=== PATIENT | female | born 1970 | race Caucasian/White ===

== ENCOUNTER 2017-07-15 08:56 | Inpatient (IN) | payer OTHER ==
[~2017-07-15] VITALS: Ht 162.6 cm; Wt 78.1 kg
[2017-07-15 09:13] VITALS: Ht 162.6 cm; Wt 78.1 kg
[2017-07-15 11:07] LABS: BASOPHIL % 0.4 % (0-2); PLATELET COUNT 261 x10^3mcL (130-400); RED CELL DISTRIBUTION WIDTH 12.8 % (11.5-14.5)
[2017-07-15 11:27] LABS: CALCIUM 9.2 mg/dL (8.5-10.1); CHLORIDE SERUM 109 mmol/L (98-107); CREATININE SERUM 0.9 mg/dL (0.6-1.0); GFR1 > 60 mL/min; GLUCOSE SERUM 93 mg/dL (74-106); POTASSIUM SERUM 4.2 mmol/L (3.5-5.1); SODIUM SERUM 144 mmol/L (136-145)
[2017-07-15 11:31] LABS: ALBUMIN 3.8 g/dL (3.4-5.0); ALKALINE PHOSPHATASE 78 U/L (46-116); ALT/SGPT 14 U/L (14-59); AMYLASE 54 U/L (25-115); AST/SGOT 11 U/L (15-37); BILIRUBIN TOTAL 0.3 mg/dL (0.20-1.00); LIPASE 56 IU/L (73-393)
[2017-07-15] MEDS ORDERED: LORAZEPAM0.5 MG PO (11:57)
[2017-07-15] MEDS ORDERED: IBUPROFEN400 MG PO (11:58)
[2017-07-15] MEDS ORDERED: OMEPRAZOLE40 M1 PO (11:58)
[2017-07-15 12:44] LABS: microscopic required? NO
[2017-07-15 13:11] LABS: UA SPECIFIC GRAVITY <=1.005 (1.005-1.035); urine erythrocyte NEGATIVE (NEGATIVE)
[2017-07-15 14:09] VITALS: BP 128/88
[2017-07-15 16:53] VITALS: BP 115/74
[2017-07-15 21:27] VITALS: BP 112/67
[2017-07-16 05:42] VITALS: BP 119/65
[2017-07-16 06:20] LABS: BASOPHIL % 0.4 % (0-2); PLATELET COUNT 210 x10^3mcL (130-400); RED CELL DISTRIBUTION WIDTH 13.3 % (11.5-14.5)
[2017-07-16 06:26] LABS: CALCIUM 8.7 mg/dL (8.5-10.1); CARBON DIOXIDE 27.2 mmol/L (21-32); CHLORIDE SERUM 108 mmol/L (98-107); CREATININE SERUM 0.9 mg/dL (0.6-1.0); GFR1 > 60 mL/min; GLUCOSE SERUM 93 mg/dL (74-106); MAGNESIUM 1.9 mg/dL (1.8-2.4); POTASSIUM SERUM 3.9 mmol/L (3.5-5.1); SODIUM SERUM 142 mmol/L (136-145)
[2017-07-16 10:16] VITALS: BP 118/69
[2017-07-16] MEDS ORDERED: FLA500 PO (10:17)
[2017-07-16] MEDS ORDERED: CIPRO500 MG PO (10:17)
[2017-07-16 13:12] VITALS: BP 114/72
[2017-07-16 14:03] VITALS: BP 114/72
== END 2017-07-16 15:40 | disposition home or self-care (01) | DRG 244 ==
LOC: ED 08:56 → DU 12:15
PROVIDERS: Emergency Medicine; Internal Medicine Pulmonary Disease
DX: K57.32 Diverticulitis of large intestine without perforation or abscess without bleeding (principal); E86.9 Volume depletion, unspecified; F41.9 Anxiety disorder, unspecified; K21.9 Gastro-esophageal reflux disease without esophagitis; F17.200 Nicotine dependence, unspecified, uncomplicated; Z90.710 Acquired absence of both cervix and uterus; Z88.5 Allergy status to narcotic agent; Z88.0 Allergy status to penicillin; Z88.1 Allergy status to other antibiotic agents; Z80.0 Family history of malignant neoplasm of digestive organs
CPT/HCPCS: 87046; 87046-59; J0744; J1956; J3490; J7042; Q0163

== ENCOUNTER 2018-04-15 15:13 | Emergency (ER) | payer OTHER ==
[~2018-04-15] VITALS: Ht 162.6 cm; Wt 76.7 kg
[~2018-04-15 15:13] MED LIST: CIPRO500 MG PO; FLA500 PO; IBUPROFEN400 MG PO; LORAZEPAM0.5 MG PO; OMEPRAZOLE40 M1 PO
[2018-04-15 15:24] VITALS: BP 128/84; Ht 162.6 cm; Wt 76.7 kg
== END 2018-04-15 17:14 | disposition home or self-care (01) ==
LOC: ED 15:13
DX: G62.9 Polyneuropathy, unspecified (principal); R10.9 Unspecified abdominal pain; M54.5 Low back pain; F17.210 Nicotine dependence, cigarettes, uncomplicated; F41.9 Anxiety disorder, unspecified; K21.9 Gastro-esophageal reflux disease without esophagitis; Z71.6 Tobacco abuse counseling; Z88.0 Allergy status to penicillin; Z88.1 Allergy status to other antibiotic agents; Z88.5 Allergy status to narcotic agent; Z90.710 Acquired absence of both cervix and uterus
CPT/HCPCS: 99406

== ENCOUNTER 2018-09-08 08:01 | Emergency (ER) | payer OTHER ==
[~2018-09-08] VITALS: Ht 162.6 cm; Wt 78.0 kg
[2018-09-08 08:06] VITALS: Ht 162.6 cm; Wt 78.0 kg
[2018-09-08 08:45] VITALS: BP 123/80
== END 2018-09-08 08:45 | disposition home or self-care (01) ==
LOC: ED 08:01
DX: K57.92 Diverticulitis of intestine, part unspecified, without perforation or abscess without bleeding (principal); F17.210 Nicotine dependence, cigarettes, uncomplicated; F41.9 Anxiety disorder, unspecified; K21.9 Gastro-esophageal reflux disease without esophagitis; Z90.710 Acquired absence of both cervix and uterus; Z88.0 Allergy status to penicillin; Z88.5 Allergy status to narcotic agent; Z88.1 Allergy status to other antibiotic agents; Z71.6 Tobacco abuse counseling
CPT/HCPCS: 99406

== ENCOUNTER 2019-03-03 15:06 | Emergency (ER) | payer OTHER ==
[~2019-03-03] VITALS: Ht 162.6 cm; Wt 77.1 kg
[2019-03-03 15:09] VITALS: Ht 162.6 cm; Wt 77.1 kg
[2019-03-03 16:36] LABS: BASOPHIL % 0.4 % (0-2); PLATELET COUNT 300 x10^3mcL (130-400)
[2019-03-03 16:49] LABS: CALCIUM 9.1 mg/dL (8.5-10.1); CHLORIDE SERUM 104 mmol/L (98-107); CREATININE SERUM 0.9 mg/dL (0.6-1.0); GFR1 > 60 mL/min; GLUCOSE SERUM 102 mg/dL (74-106); POTASSIUM SERUM 4.3 mmol/L (3.5-5.1); SODIUM SERUM 142 mmol/L (136-145)
[2019-03-03 16:54] LABS: ALBUMIN 4.1 g/dL (3.4-5.0); ALKALINE PHOSPHATASE 89 U/L (46-116); ALT/SGPT 14 U/L (14-59); AST/SGOT 11 U/L (15-37); BILIRUBIN TOTAL 0.18 mg/dL (0.20-1.00); TOTAL PROTEIN, SERUM 7.7 g/dL (6.4-8.2)
[2019-03-03 17:54] VITALS: BP 117/81
== END 2019-03-03 18:09 | disposition home or self-care (01) ==
LOC: ED 15:06
PROVIDERS: Emergency Medicine
DX: R55 Syncope and collapse (principal); F41.9 Anxiety disorder, unspecified; K21.9 Gastro-esophageal reflux disease without esophagitis; F17.210 Nicotine dependence, cigarettes, uncomplicated; Z88.0 Allergy status to penicillin; Z88.5 Allergy status to narcotic agent; Z88.1 Allergy status to other antibiotic agents; Z90.710 Acquired absence of both cervix and uterus
CPT/HCPCS: 36415; Q0092

== ENCOUNTER 2019-09-09 17:55 | Emergency (ER) | payer OTHER ==
[~2019-09-09] VITALS: Ht 162.6 cm; Wt 76.7 kg
[2019-09-09 18:04] VITALS: BP 124/75; Ht 162.6 cm; Wt 76.7 kg
== END 2019-09-09 19:12 | disposition home or self-care (01) ==
LOC: ED 17:55
DX: S20.212A Contusion of left front wall of thorax, initial encounter (principal); K21.9 Gastro-esophageal reflux disease without esophagitis; M19.90 Unspecified osteoarthritis, unspecified site; Z90.710 Acquired absence of both cervix and uterus; Z88.0 Allergy status to penicillin; Z88.5 Allergy status to narcotic agent; X58.XXXA Exposure to other specified factors, initial encounter; Y93.89 Activity, other specified; Y92.89 Other specified places as the place of occurrence of the external cause; Y99.8 Other external cause status
CPT/HCPCS: J1885; Q0092